=== PATIENT | male | born 1985 | race Caucasian/White ===

== ENCOUNTER 2017-05-16 19:32 | Emergency (ER) | payer SELFPAY ==
[2017-05-16] MEDS ORDERED: Lidocaine 1% 20 ML MDV INJECT ONE (19:47)
[2017-05-16] MEDS ORDERED: Bacitracin Oint 1 GM U/D Packet TOP ONE (19:47)
--- NOTE | 2017-05-16 19:57 | EDM.PDOC ---
ED HPI GENERAL MEDICAL PROBLEM - General Chief Complaint: Laceration Stated Complaint: LACERATION RT THUMB Time Seen by Provider: 05/16/17 19:56 Source of Information: Reports: Patient History Limitations: Reports: No Limitations - History of Present Illness INITIAL COMMENTS - FREE TEXT/NARRATIVE: HISTORY AND PHYSICAL: [] 31-year-old male presenting with laceration to his right thumb History of Present Illness: []Patient was making supper sliced his thumb Review of Systems: As per history of present illness and below otherwise all systems reviewed and negative. Past medical history: As per history of present illness and as reviewed below otherwise noncontributory. Surgical history: As per history of present illness and as reviewed below otherwise noncontributory. Social history: No reported history of drug or alcohol abuse. Family history: As per history of present illness and as reviewed below otherwise noncontributory. Physical exam: Alert and oriented male does not recall his last tetanus vaccine HEENT: Atraumatic, normocehpalic, pupils reactive, negative for conjunctival pallor or scleral icterus, mucous membranes moist, throat clear, neck supple, nontender, trachea midline. Lungs: Clear to auscultation, breath sounds equal bilaterally, chest non tender. Heart: S1S2, regular, negative for clicks, rubs, or JVD. Abdomen: Soft, nondistended, nontender. Negative for masses or hepatossplenmegaly. Negative for costovertebral tenderness. Pelvis: Stable nontender. Genitourinary: Deferred. Rectal: Deferred Extremities: Laceration to pad of thumb, area has blood freely flowing, patient is able to bend and extend the thumb. Mild loss of sensation to tip of thumb. No tendon injury noted. negative for cords or calf pain. Neurovascular unremarkable. Neuro: Awake, alert, oriented. Cranial nerves II through XII unremarkable. Cerebellum unremarkable. Motor and sensory unremarkable throughout. Exam nonfocal. Dr. Nash kindly examined the patient injury. She messaged a picture to specialist Dr. Mariano who agreed to see the patient tomorrow and instructed to close wound and have pressure dressing after intervention. Thumb block was successful to reduce any pain. Italo drain was utilized for tourniquet to thumb. Bleeding at that time was controlled. 4 sutures were placed and wound was closed. Sterile dressing applied. Diagnostics: [] Therapeutics: [Block to thumb with 1% lidocaine] Impression: [Laceration to thumb] Plan: []Follow-up with Dr. Mariano tomorrow [facility] [address] [place] [address], [address] [place] [address] Definitive disposition and diagnosis as appropriate pending reevaluation and review of above. Onset: Today, Sudden Duration: Minutes: Quality: Reports: Stabbing Severity: Severe Associated Symptoms: Reports: No Other Symptoms Right 1-Thumb Pain Score (Numeric/FACES): 4 - Related Data Allergies Allergy/AdvReac Type Severity Reaction Status Date / Time No Known Allergies Allergy Verified 05/16/17 19:49 Home Meds: Home Meds . [No Known Home Meds] 05/16/17 [History] Past Medical History - Past Health History Medical/Surgical History: Denies Medical/Surgical History Oncologic (Cancer) History: Reports: None Social & Family History - Family History Family Medical History: Noncontributory - Tobacco Use Smoking Status *Q: Former Smoker Used Tobacco, but Quit: Yes Month Tobacco Last Used: "years ago" - Caffeine Use Caffeine Use: Reports: Coffee - Recreational Drug Use Recreational Drug Use: No ED ROS GENERAL - Review of Systems Review Of Systems: ROS reveals no pertinent complaints other than HPI. ED EXAM, SKIN/RASH Exam: See Below (See dictation) ED SKIN PROCEDURES - Laceration/Wound Repair Right Posterior Finger Lac/Wound length In cm: 2.5 Appearance: Muscle Distal NVT: Neuro & Vascular Intact, No Tendon Injury Anesthetic Type: Digital Local Anesthesia - Lidocaine (Xylocaine): 1% Plain Local Anesthetic Volume: 5cc Skin Prep: Saline Exploration/Debridement/Repair: Wound Explored, Explored to Base Closed with: Sutures Suture Size: 4-0 # of Sutures: 4 Suture Type: Nylon Course - Vital Signs Last Recorded V/S: Last Vital Signs Temp 36.8 C 05/16/17 19:43 Pulse 72 05/16/17 19:43 Resp 19 05/16/17 19:43 BP 132/82 05/16/17 19:43 Pulse Ox 97 05/16/17 19:43 - Orders/Labs/Meds Meds: Medications Discontinued Medications Generic Name Dose Route Start Last Admin Trade Name Freq PRN Reason Stop Dose Admin Bacitracin 1 dose 05/16/17 19:47 05/16/17 20:14 Bacitracin Oint 1 Gm TOP 05/16/17 19:48 1 dose ONETIME ONE Administration Lidocaine HCl 20 ml 05/16/17 19:47 05/16/17 20:14 Xylocaine 1% INJECT 05/16/17 19:48 20 ml ONETIME ONE Administration Departure - Departure Time of Disposition: 20:29 Disposition: Home, Self-Care 01 Condition: Good Clinical Impression: Laceration - Discharge Information Instructions: Laceration Care, Adult, [id number] Forms: ED Department Discharge Additional Instructions: The following information is given to patients seen in the emergency department who are being discharged to home. This information is to outline your options for follow-up care. We provide all patients seen in our emergency department with a follow-up referral. The need for follow-up, as well as the timing and circumstances, are variable depending upon the specifics of your emergency department visit. If you don't have a primary care physician on staff, we will provide you with a referral. We always advise you to contact your personal physician following an emergency department visit to inform them of the circumstance of the visit and for follow-up with them and/or the need for any referrals to a consulting specialist. The emergency department will also refer you to a specialist when appropriate. This referral assures that you have the opportunity for followup care with a specialist. All of these measure are taken in an effort to provide you with optimal care, which includes your followup. Under all circumstances we always encourage you to contact your private physician who remains a resource for coordinating your care. When calling for followup care, please make the office aware that this follow-up is from your recent emergency room visit. If for any reason you are refused follow-up, please contact the [facility] emergency department at and asked to speak to the emergency department charge nurse. Follow-up with Dr. Sammie Mariano tomorrow [facility] [address] [place] [address], [address] [place] [address]
[2017-05-16] MEDS ORDERED: Diphtheria,Pertussis(Acell),Tetanus Vaccine 0.5 ML Syringe IM ONE (20:24)
[2017-05-16 20:44] VITALS: BP 127/80
== END 2017-05-16 20:40 | disposition home or self-care (01) ==
LOC: MW.ED 19:32
DX: S61.011A Laceration without foreign body of right thumb without damage to nail, initial encounter (principal); Z87.891 Personal history of nicotine dependence; W45.8XXA Other foreign body or object entering through skin, initial encounter
CPT/HCPCS: 12001; 90471; 90715; 99282-25; 99283